=== PATIENT | female | born 1960 | race Caucasian/White ===

== ENCOUNTER 2017-12-14 13:31 | Emergency (ER) | payer MEDICARE, OTHER ==
[2017-12-14] MEDS: LORAZEPAM 2 MG INJ IV (13:52)
[2017-12-14] MEDS: MECLIZINE 12.5 MG TAB PO (13:52)
[2017-12-14] MEDS: ONDANSETRON 4 MG INJ IV (13:52)
[2017-12-14 14:01] LABS: ADD MAN DIFF? NO
[2017-12-14 14:03] LABS: WHITE BLOOD COUNT 17.1 10^3/ul (4.8-10.8)
[2017-12-14 14:03] LABS: BASOPHILS % 0.2 % (0.0-2.0); HEMATOCRIT 43.3 % (37.0-47.0); HEMOGLOBIN 14.2 g/dl (12.0-16.0); LYMPHOCYTES # 1.4 10^3/ul (0.8-2.9); LYMPHOCYTES % 8.3 % (15.0-51.0); MEAN CORPUSCULAR HEMOGLOBIN 29.7 pg (29.0-33.0); MEAN CORPUSCULAR HGB CONC 32.8 g/dl (32.0-37.0); MEAN CORPUSCULAR VOLUME 90.6 fl (82.0-101.0); MEAN PLATELET VOLUME 10.6 fl (7.4-10.4); MONOCYTE # 0.8 10^3/ul (0.3-0.9); MONOCYTES % 4.9 % (0.0-11.0); NEUTROPHIL # 14.7 10^3/ul (1.6-7.5); PLATELET COUNT 384 10^3/UL (140-415); RED BLOOD COUNT 4.78 10^6/ul (4.20-5.40); RED CELL DISTRIBUTION WIDTH 13.5 % (11.5-14.5)
[2017-12-14 14:26] LABS: ANION GAP 20 (8-16); BLOOD UREA NITROGEN 22 mg/dl (7-20); CALCIUM 10.1 mg/dl (8.4-10.2); CARBON DIOXIDE 25 mmol/L (21-31); CHLORIDE 99 mmol/L (97-110); CREATININE 0.62 mg/dl (0.44-1.00); GLUCOSE 167 mg/dl (70-220); POTASSIUM 3.5 mmol/L (3.5-5.1); SODIUM 140 mmol/L (135-144)
[2017-12-14 14:37] LABS: TROPONIN-I 0.012 ng/ml (0.000-0.120)
== END 2017-12-14 15:56 | disposition home or self-care (01) ==
LOC: E/R 13:31
DX: R11.2 Nausea with vomiting, unspecified (principal); F17.210 Nicotine dependence, cigarettes, uncomplicated
CPT/HCPCS: 36415; 70450; 80048; 84484; 85025; 93005; 96374; 96375; 99285-25